=== PATIENT | female | born 1950 | race Caucasian/White ===

== ENCOUNTER → 2020-03-18 11:37 | Outpatient (REF) | payer OTHER, SELFPAY | LOC: ANHLAB 11:37 | PROVIDERS: Visit Provider Nurse Practitioner | DX: D49.2 Neoplasm of unspecified behavior of bone, soft tissue, and skin (principal) | CPT/HCPCS: 88305 ==

== ENCOUNTER → 2020-04-22 15:50 | Outpatient (REF) | payer OTHER, SELFPAY | LOC: ANHLAB 15:50 | PROVIDERS: Visit Provider Nurse Practitioner | DX: C44.329 Squamous cell carcinoma of skin of other parts of face (principal) | CPT/HCPCS: 88305 ==

== ENCOUNTER 2024-04-13 11:22 | Emergency (ER) | payer OTHER, SELFPAY ==
[2024-04-13 11:34] VITALS: BP 152/84; PULSE 73; RESP 16; TEMP 36.8; O2SAT 98
--- NOTE | 2024-04-13 11:39 | ED.UPPEXIN ---
HPI - Extremity Injury (Upper) General Chief Complaint: Extremity Injury, Upper Stated Complaint: Right Shoulder Injury Time Seen by Provider: 04/13/24 11:40 Source: patient Mode of arrival: ambulatory Limitations: no limitations History of Present Illness HPI narrative: 73-year-old female presented for complaint or right upper arm pain after injury while at work today. 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 She did not fall to the ground. She endorses pain is to the upper shoulder and bicep, only with movement at the elbow. Endorses slight decreased ROM at shoulder due to pain. denies pain at rest. Denies Numbness, tingling, weakness or radiating pain. Has not taken anything for pain. Rates pain 12/15. Related Data Home Medications Medication Instructions Recorded Confirmed mirtazapine 45 mg tablet 45 mg PO HS 03/18/20 04/13/24 atorvastatin 80 mg tablet 80 mg PO DAILY 04/13/24 04/13/24 buspirone 5 mg tablet 5 mg PO BID 04/13/24 04/13/24 fluoxetine 20 mg capsule 20 mg PO DAILY 04/13/24 04/13/24 ibuprofen 800 mg tablet 800 mg PO TID 04/13/24 04/13/24 lisinopril 20 mg tablet 20 mg PO DAILY 04/13/24 04/13/24 omeprazole 20 mg capsule,delayed 20 mg PO DAILY 04/13/24 04/13/24 release oxybutynin chloride 5 mg 5 mg PO DAILY 04/13/24 04/13/24 tablet,extended release 24 hr quetiapine 25 mg tablet 25 mg PO 04/13/24 Allergies Allergy/AdvReac Type Severity Reaction Status Date / Time No Known Allergies Allergy Verified 04/29/20 09:39 Review of Systems Review of Systems: CONSTITUTIONAL: Denies body aches, fever, chills CARDIOVASCULAR: Denies chest pain, palpitations, or edema. RESPIRATORY: Denies cough or dyspnea. SKIN: Denies rash, itching, or wounds. MUSCULOSKELETAL: Reports right shoulder and arm pain NEUROLOGIC: Denies headache, numbness, tingling, or weakness. All systems reviewed & are unremarkable except as noted in HPI and below PMFSH Past Medical History Medical History High cholesterol Surgical History Surgical History History of cholecystectomy History of hysterectomy Family History Family History Mother Cancer Sibling Cancer Social History Social History Smoking packs per day: 1.5 Smoking cigarettes per day: 30.0 Smoking status: Current every day smoker Tobacco type: cigarettes Alcohol intake: never Substance use: never Substance use type: does not use Comments At time of signature, I have reviewed and agree with nursing past medical, surgical, social and family history unless otherwise noted. Please see nursing chart for further information. There is no relevant family history pertinent to the presenting complaint Exam Narrative: GENERAL: appears in some pain; and in no acute distress. CHEST: Speaks in full sentences. No respiratory distress. HEART: Regular rate and rhythm. Normal and equal peripheral pulses. EXTREMITIES: Right upper extremity has normal strength and sensation, slightly limited range of motion at shoulder due to subjective pain with movement. Unable to tolerate full RUE overhead movement, or lateral abduction of shoulder greater than 90 degrees. Tolerates full flexion and extension of elbow but reports some pain with full flexion. Tender with palpation to AC joint area and anterior deltoid. No swelling, erythema, or ecchymosis. No open wounds, skin tenting, or obvious deformity; alignment normal, pulse palpable and equal bilaterally, skin warm, dry, pink. Capillary refill less than 3 seconds. SKIN: Warm, dry, no rash. NEURO: Alert and oriented x3. PSYCH: Normal mood and affect Course
== END 2024-04-13 11:55 | disposition home or self-care (01) ==
PROVIDERS: Emergency Provider Nurse Practitioner Family
DX: M25.511 Pain in right shoulder (principal); F17.210 Nicotine dependence, cigarettes, uncomplicated; E78.00 Pure hypercholesterolemia, unspecified
CPT/HCPCS: 99213; G0463